=== PATIENT | male | born 1990 | race Two or more races ===

== ENCOUNTER 2016-08-27 01:50 | Emergency (ER) | payer OTHER ==
[~2016-08-27] VITALS: Ht 165.1 cm; Wt 51.7 kg
--- NOTE | 2016-08-27 01:50 | NUR ---
26 YO MALE BB [employer] FOR OK TO BOOK. PT IS ALERT X 3, HAS NO MEDICAL COMPLAINTS. PER [employer] PT IS UNDER THE INFLUENCE OF AN UNKNOWN DRUG. PT AMBULATED TO ER BED, SKIN WARM AND DRY, RR EVEN AND UNLABORED. PT PLACED ON PATTERN CHANGER AND REPAIRER, WILL CONTINUE TO MONITOR
[2016-08-27 01:57] VITALS: BP 123/50
--- NOTE | 2016-08-27 02:00 | NUR ---
Patient discharged to home in stable condition. Written and verbal after care instructions given. Patient verbalizes understanding of instruction. PT ambulatory with a steady gait VITAL SIGNS WITHIN NORMAL LIMITS.
== END 2016-08-27 01:58 ==
LOC: ER 01:52
DX: Z00.8 Encounter for other general examination (principal)
CPT/HCPCS: A4606; Z7610